=== PATIENT | female | born 1985 | race Caucasian/White ===

== ENCOUNTER 2018-07-17 08:38 | Emergency (ER) | payer MEDICARE, MEDICAID ==
[~2018-07-17] VITALS: Ht 162.6 cm; Wt 50.0 kg
[2018-07-17 09:27] LABS: BASOPHILS % 0.8 % (0.0-2.0); EOSINOPHILS % 2.9 % (0.0-5.0); HEMATOCRIT. 37.3 % (36.0-48.0); HEMOGLOBIN. 12.1 g/dL (12.0-16.0); LYMPHOCYTES % 25.3 % (20.0-50.0); MEAN CORPUSCULAR HEMOGLOBIN 26.7 pg (28.0-32.0); MEAN CORPUSCULAR VOLUME 82.5 fL (81.0-99.0); MEAN PLATELET VOLUME 9.3 fl (7.4-10.4); PLATELET 312 x1000/uL (130-400); RED BLOOD CELL COUNT 4.52 mill/uL (4.2-5.4); RED CELL DISTRIBUTION WIDTH 14.4 % (11.6-14.6)
[2018-07-17 09:41] LABS: CHLORIDE 107 mEq/L (98-107)
[2018-07-17] MEDS ORDERED: KETOROLAC 30MG/ML VIAL IV ONE (12:15)
[2018-07-17 19:00] VITALS: BP 110/69
== END 2018-07-17 19:00 | disposition home or self-care (01) ==
LOC: ER 08:52
DX: R07.89 Other chest pain (principal)
CPT/HCPCS: 36415; 71045; 81025; 84484; 93005; 99284